=== PATIENT | male | born 1975 ===

== ENCOUNTER 2017-06-27 14:44 | Emergency (ER) | payer SELFPAY ==
--- NOTE | 2017-06-27 16:28 | C.PDOC ---
History Of Present Illness 42 yr old male brought in by PD and EMS, presents to the ER stating patient was [place] and acting bizarre. Patient states he was in [place], [place] and is unsure how he got to [place]. Patient denies alcohol or drug use, chest pain, SOB, nausea, vomiting, weakness or numbness. Time Seen by Provider: 06/27/17 15:30 Chief Complaint (Nursing): Substance Abuse History Per: Patient, EMS, Other (PD) History/Exam Limitations: no limitations Onset/Duration Of Symptoms: Unknown Past Medical History Reviewed: Historical Data, Nursing Documentation, Vital Signs Vital Signs: Last Vital Signs Temp 99.1 F 06/27/17 14:50 Pulse 91 H 06/27/17 14:50 Resp 20 06/27/17 14:50 BP 117/69 06/27/17 14:50 Pulse Ox 96 06/27/17 16:35 Family History: States: No Known Family Hx - Social History Hx Alcohol Use: No Hx Substance Use: No Review Of Systems Except As Marked, All Systems Reviewed And Found Negative. Cardiovascular: Negative for: Chest Pain Respiratory: Negative for: Shortness of Breath Gastrointestinal: Negative for: Nausea, Vomiting Neurological: Negative for: Weakness, Numbness Physical Exam - Physical Exam Appears: Non-toxic, Other ((+) Anxious. Answering some question appropriatly. ) Skin: Warm, Dry, Other ((+) ? old scars to the anterior chest wall. ) Head: Atraumatic, Normacephalic, Abrasion (Abrasion to the forehead. ) Eye(s): bilateral: Normal Inspection, PERRL, EOMI Oral Mucosa: Moist Chest: Symmetrical, No Tenderness Cardiovascular: Rhythm Regular, No Murmur Respiratory: Normal Breath Sounds, No Rales, No Rhonchi, No Stridor, No Wheezing Extremity: Normal ROM, No Swelling Neurological/Psych: Oriented x3, Normal Speech, Normal Motor ED Course And Treatment - Laboratory Results Result Diagrams: 06/27/17 17:00 06/27/17 17:00 ECG: Interpreted By Me, Viewed By Me O2 Sat by Pulse Oximetry: 96 (RA) Pulse Ox Interpretation: Normal Medical Decision Making Medical Decision Making: PLAN: * CT - head * CXR * EKG * Alcohol Serum * Drug Screen * CBC * CMP * Urinalysis * Ativan IVP & IM Disposition - Disposition Disposition Time: 19:00 Condition: UNKNOWN Forms: [facility] (Arabic) - Clinical Impression Clinical Impression: Drug abuse, Psychosis - Scribe Statement The provider has reviewed the documentation as recorded by the [place]ena[place] Shobha Drew Provider Attestation: All medical record entries made by the Scribe were at my direction and personally dictated by me. I have reviewed the chart and agree that the record accurately reflects my personal performance of the history, physical exam, medical decision making, and the department course for this patient. I have also personally directed, reviewed, and agree with the discharge instructions and disposition. Physician Patient Turnover Patient Signed Over To: Reji Hernadez
[2017-06-27 17:13] LABS: ALBUMIN 4.1 g/dL (3.5-5.0); BASO % 0.5 % (0.0-2.0); EOS # 0.1 K/uL (0.0-0.7); EOS % 1.4 % (0.0-4.0); HEMOGLOBIN 15.6 g/dL (12.0-18.0); LYMPH # 1.9 K/uL (1.0-4.3); LYMPH % 22.3 % (20.0-40.0); MEAN CELL VOLUME 87.5 fL (80.0-94.0); MEAN CORPUSCULAR HEMOGLOBIN 29.5 pg (27.0-31.0); MEAN CORPUSCULAR HGB CONC 33.7 g/dL (33.0-37.0); MONO # 0.5 K/uL (0.0-0.8); MONO % 5.9 % (0.0-10.0); NEUT # 5.9 K/uL (1.8-7.0); NEUT % 69.9 % (50.0-75.0); RBC 5.29 Mil/uL (4.40-5.90); WHITE BLOOD COUNT 8.4 K/uL (4.8-10.8)
[2017-06-27 17:16] LABS: ALB/GLOB RATIO 1.3 (1.0-2.1); ALT/SGPT 58 U/L (21-72); AST/SGOT 86 U/L (17-59); BLOOD UREA NITROGEN 16 mg/dL (9-20); GFR AFRICAN-AMERICAN > 60; GFR NON-AFRICAN AMERICAN > 60
[2017-06-27 17:17] LABS: CALCIUM 8.4 mg/dl (8.6-10.4); SALICYLATE < 1.0 mg/dL 1
--- NOTE | 2017-06-27 17:19 | CT ---
PROCEDURE: CT HEAD WITHOUT CONTRAST. HISTORY: r/o ICH COMPARISON: None available. TECHNIQUE: Axial computed tomography images were obtained through the head/brain without intravenous contrast. Radiation dose: Total exam DLP = 866 mGy-cm. This CT exam was performed using one or more of the following dose reduction techniques: Automated exposure control, adjustment of the mA and/or kV according to patient size, and/or use of iterative reconstruction technique. FINDINGS: HEMORRHAGE: No intracranial hemorrhage. BRAIN: No mass effect or edema. No atrophy or chronic microvascular ischemic changes. VENTRICLES: Unremarkable. No hydrocephalus. CALVARIUM: Question right nasal bone deformity. PARANASAL SINUSES: Mucosal thickening and opacification of the ethmoid air cells. MASTOID AIR CELLS: Unremarkable as visualized. No inflammatory changes. OTHER FINDINGS: Soft tissue swelling seen overlying the midline frontal cranium. IMPRESSION: Soft tissue swelling seen overlying the midline frontal cranium. Mucosal thickening and opacification of the ethmoid air cells. Question right nasal bone deformity. No acute intracranial abnormality. If symptoms persists, consider MRI.
[2017-06-27 17:22] LABS: URINE BACTERIA RARE (<OCC); URINE BILIRUBIN NEGATIVE (NEGATIVE); URINE BLOOD NEGATIVE (NEGATIVE); URINE CLARITY Clear (Clear); URINE COLOR Yellow (YELLOW); URINE GLUCOSE (UA) NORMAL (Normal); URINE LEUKOCYTE ESTERASE NEG Leu/uL (Negative); URINE NITRATE NEGATIVE (NEGATIVE); URINE PROTEIN 1+ mg/dL (NEGATIVE); URINE UROBILINOGEN NORMAL mg/dL (0.2-1.0)
[2017-06-27 17:26] LABS: ACETAMINOPHEN < 10.0 ug/mL (10.0-30.0)
[2017-06-27 17:30] LABS: BARBITURATES, UR NEGATIVE (NEGATIVE)
[2017-06-27 17:31] LABS: BENZODIAZEPINES, UR NEGATIVE (NEGATIVE)
[2017-06-27 17:33] LABS: OPIATES, UR NEGATIVE (NEGATIVE)
[2017-06-27 17:34] LABS: PHENCYCLIDINE, UR NEGATIVE (NEGATIVE)
[2017-06-27 18:50] LABS: T3 1.65 nmol/L (1.49-2.60)
[2017-06-28 04:08] VITALS: TEMP 98.3; O2SAT 97
[2017-06-28 06:39] VITALS: BP 98/68; PULSE 58; RESP 12
--- NOTE | 2017-06-28 08:09 | RAD ---
PROCEDURE: CHEST RADIOGRAPH, 1 VIEW HISTORY: Detox/Psy COMPARISON: None available. FINDINGS: LUNGS: Mild venous congestion. Right hilar prominence. PLEURA: No pneumothorax or pleural fluid seen. CARDIOVASCULAR: Normal. OSSEOUS STRUCTURES: No significant abnormalities. VISUALIZED UPPER ABDOMEN: Normal. OTHER FINDINGS: None. IMPRESSION: Mild venous congestion. Right hilar prominence.
== END 2017-06-28 07:08 | disposition home or self-care (01) ==
LOC: C.ER 14:44
DX: F29 Unspecified psychosis not due to a substance or known physiological condition (principal); F19.10 Other psychoactive substance abuse, uncomplicated
CPT/HCPCS: 70450; 71010; 80053; 81001; 84439; 84443; 84480; 85025; 96372; 99285; G0480; J2060